=== PATIENT | male | born 1970 | race Caucasian/White ===

== ENCOUNTER → 2019-09-09 | Outpatient (CLI) | payer BC ==
[2019-09-09 13:39] VITALS: BP 135/83; PULSE 78; RESP 16; TEMP 98; BMI 26.2
--- NOTE | 2019-09-09 15:26 | P.BASOAP ---
Subjective Progress Note Date: 09/09/19 Principal diagnosis: Morbid obesity Patient underwent previous laparoscopic band placement. Admits that he chronically has frequent emesis in the morning that is often consisting of food from the evening before. No pain. No heartburn. Has maintained his weight loss. His urged him to come in to have the patient's band empty, possible EGD, possible band removal. Patient is interested in emptying the band currently. Objective - Vital Signs Vital signs: Vital Signs Temp 98.0 F 09/09/19 13:36 Pulse 78 09/09/19 13:36 Resp 16 09/09/19 13:36 BP 135/83 09/09/19 13:36 Pulse Ox Intake & Output 09/08/19 09/09/19 09/09/19 18:59 06:59 18:59 Weight 82.809 kg - Exam Abdomen: Soft, nontender, nondistended Assessment/Plan (1) Morbid obesity Narrative/Plan: Patient with frequent vomiting. Will empty the band at this time. Options of EGD and band removal discussed. He will consider and notify me with his decision. The patient's lap band port was palpated. The site was aseptically prepped. The Mckenzie needle was advanced into the port. A total of 10 ml of fluid was evacuate d. Pressure was held and a sterile dressing was applied. Plan: Date: 09/09/19 Initial Weight: 103.419 kg Initial BMI: 32.7 Current Weight: 82.809 kg Current BMI: 26.2 Type of Surgery: Total Volume in Band: Previous Volume: Volume Removed: Volume Added: Band Size:
== END | disposition home or self-care (01) ==
LOC: BARWHC3 13:25
PROVIDERS: ATTEND Surgery
DX: Z46.51 Encounter for fitting and adjustment of gastric lap band (principal); E66.01 Morbid (severe) obesity due to excess calories; Z68.26 Body mass index [BMI] 26.0-26.9, adult; Z98.84 Bariatric surgery status
CPT/HCPCS: 99212

== ENCOUNTER → 2020-03-02 | Outpatient (CLI) | payer BC ==
--- NOTE | 2020-03-02 13:46 | P.BASOAP ---
Subjective Progress Note Date: 03/02/20 Principal diagnosis: Morbid obesity Patient returns for recheck today. Last seen in September. At that time his band was emptied because he was having issues related to dysphagia and reflux. His symptoms resolved after taking 10 mL out. Since last visit he has gained 18 pounds. He noticed the size of his pant waist increasing by 1-2 sizes. He has been exercising less. He just started refocusing his efforts at weight loss one to 2 weeks ago. He is interested in a band adjustment. Objective - Exam Abdomen: Soft, nontender, nondistended Assessment/Plan (1) Morbid obesity Narrative/Plan: Options reviewed with the patient. He is agreeable to band adjustment. We'll add 5 mL at this time. He was previously too tight at 10 mL. Follow-up 1-2 months if further fills necessary. The patient's lap band port was palpated. The site was aseptically prepped. The Mckenzie needle was advanced into the port. A total of 5 ml of fluid was for a total of 5 mL. Pressure was held and a sterile dressing was applied. Plan: Date: Initial Weight: 103.419 kg Initial BMI: Current Weight: Current BMI: Type of Surgery: Total Volume in Band: Previous Volume: Volume Removed: Volume Added: Band Size:
[2020-03-02 13:59] VITALS: BP 141/93; PULSE 78; TEMP 98.3; BMI 28.8
== END | disposition home or self-care (01) ==
LOC: BARWHC3 12:57
PROVIDERS: ATTEND Surgery
DX: Z46.51 Encounter for fitting and adjustment of gastric lap band (principal); Z98.84 Bariatric surgery status; E66.01 Morbid (severe) obesity due to excess calories; Z68.28 Body mass index [BMI] 28.0-28.9, adult
CPT/HCPCS: 99212

== ENCOUNTER → 2020-05-04 | Outpatient (CLI) | payer BC ==
[2020-05-04 14:15] VITALS: BP 116/76; PULSE 80; RESP 16; TEMP 98.5; BMI 26.9
--- NOTE | 2020-05-04 16:28 | P.BASOAP ---
Subjective Progress Note Date: 05/04/20 Principal diagnosis: Morbid obesity Patient here today requesting a lap band adjustment. He has lost weight but is exercising quite a bit more. Does not feel any restriction. He would like a small fill. Objective - Vital Signs Vital signs: Vital Signs Temp 98.5 F 05/04/20 14:12 Pulse 80 05/04/20 14:12 Resp 16 05/04/20 14:12 BP 116/76 05/04/20 14:12 Pulse Ox Intake & Output 05/03/20 05/04/20 05/04/20 18:59 06:59 18:59 Weight 85.275 kg - Exam Abdomen: Soft, nondistended, nontender Assessment/Plan (1) Morbid obesity Narrative/Plan: Patient doing well at this time. Requesting a small fill. We'll go from 5 mL to 7 mL. Consider adding 0.5-1 mL next visit if needed. Patient will call for follow-up visit. Plan: Date: 05/04/20 Initial Weight: 103.419 kg Initial BMI: 32.7 Current Weight: 85.275 kg Current BMI: 26.9 Type of Surgery: Total Volume in Band: 7 Previous Volume: Volume Removed: Volume Added: 2 Band Size:
== END | disposition home or self-care (01) ==
LOC: BARWHC3 13:37
PROVIDERS: ATTEND Surgery
DX: Z46.51 Encounter for fitting and adjustment of gastric lap band (principal); E66.01 Morbid (severe) obesity due to excess calories; Z68.32 Body mass index [BMI] 32.0-32.9, adult; Z98.84 Bariatric surgery status
CPT/HCPCS: 99212

== ENCOUNTER → 2020-08-03 | Outpatient (CLI) | payer BC ==
[2020-08-03 14:01] VITALS: BP 131/88; PULSE 75; TEMP 98.1; BMI 28.3
--- NOTE | 2020-08-03 15:55 | P.BASOAP ---
Subjective Progress Note Date: 08/03/20 Principal diagnosis: Morbid obesity Patient returns for recheck. He was last seen 3 months ago. Patient asking for more the fill. He was too tight at 10 mL. He is currently at 8 mL. No restriction at this time. No nausea or vomiting. Objective - Vital Signs Vital signs: Vital Signs Temp 98.1 F 08/03/20 13:57 Pulse 75 08/03/20 13:57 Resp BP 131/88 08/03/20 13:57 Pulse Ox Intake & Output 08/02/20 08/03/20 08/03/20 18:59 06:59 18:59 Weight 89.358 kg - Exam Abdomen: Soft, nontender, nondistended Assessment/Plan (1) Morbid obesity Narrative/Plan: Patient requesting a lap band adjustment. We will add 1 mL for a total of 8 mL. The patient's lap band port was palpated. The site was aseptically prepped. The Mckenzie needle was advanced into the port. A total of 1 ml of fluid was added. Pressure was held and a sterile dressing was applied. Plan: Date: 08/03/20 Initial Weight: 103.419 kg Initial BMI: 32.7 Current Weight: 89.358 kg Current BMI: 28.3 Type of Surgery: Total Volume in Band: 8 Previous Volume: Volume Removed: Volume Added: 1 Band Size:
== END ==
LOC: BARWHC3 13:22
PROVIDERS: ATTEND Surgery
DX: E66.01 Morbid (severe) obesity due to excess calories (principal); Z46.51 Encounter for fitting and adjustment of gastric lap band; Z68.28 Body mass index [BMI] 28.0-28.9, adult; F17.200 Nicotine dependence, unspecified, uncomplicated
CPT/HCPCS: 99212